=== PATIENT | male | born 1945 | race Caucasian/White ===

== ENCOUNTER 2023-05-08 16:56 | Inpatient (IN) | payer MEDICARE ==
[2023-05-09] MEDS ORDERED: tiZANidine HCl 4 MG TAB PO PRN (10:13)
[2023-05-09] MEDS ORDERED: Senokot S 8.6-50 MG TAB PO PRN (10:16)
[2023-05-09] MEDS ORDERED: Bisacodyl 5 MG TAB PO PRN (10:16)
[2023-05-09] MEDS ORDERED: HumaLOG 300 UNITS/3 ML VIAL SC PRN ×2 (10:19)
[2023-05-09] MEDS ORDERED: Glucagon 1 MG/ML KIT IM PRN (10:19)
[2023-05-09] MEDS ORDERED: Dextrose 50% Abboject 50 ML SYRINGE SLOW IVP PRN (10:19)
[2023-05-09] MEDS: Acetaminophen/Codeine 30-300mg Tablet PO PRN (12:56)
[2023-05-09] MEDS: metFORMIN 500 MG TAB PO SCH (16:35)
[2023-05-09] MEDS: Atorvastatin Calcium 40 MG TAB PO SCH (20:21)
[2023-05-09] MEDS: Nystatin Powder 15 GM BOT TOP SCH (20:21)
[2023-05-09] MEDS: Docusate 100 MG CAP PO SCH (20:22)
[2023-05-09] MEDS: Gabapentin 300 MG CAP PO SCH (20:22)
[2023-05-09] MEDS: Famotidine 20 MG TAB PO SCH (20:22)
[2023-05-10] MEDS: Acetaminophen/Codeine 30-300mg Tablet PO PRN ×2 (05:16→12:19)
[2023-05-10 05:51] LABS: #Basophils 0.1 thou/uL (0.0-0.2); #Eosinphils 0.2 thou/uL (0.0-0.7); #Lymphocytes 1.7 thou/uL (1.20-3.40); #Monocytes 1.2 thou/uL (0.11-0.59); #Neutrophils 9.8 thou/uL (1.40-6.50); %Basophils 0.9 % (0.0-1.0); %Eosinophils 1.8 % (0.0-10.0); %Lymphocytes 12.7 % (21.0-51.0); %Monocytes 9.4 % (0.0-10.0); %Neutrophils 75.2 % (42.0-75.0); Hemoglobin 13.1 g/dL (14.0-18.0); Mean Corpuscular HGB CONC 32.6 g/dL (32.0-36.0); Mean Corpuscular Hemoglobin 29.4 pg (27.0-31.0); Mean Corpuscular Volume 90.4 fl (78.0-98.0); Mean Platelet Volume 8.8 fL (7.4-10.4); Platelet Count 235 10x3/uL (130-400); RBC Distribution Width 12.8 % (11.5-14.5); Red Blood Cell (RBC) Count 4.44 mill/uL (4.70-6.10)
[2023-05-10 06:11] LABS: ALT (SGPT) 16 U/L (8-55); AST (SGOT) 22 U/L (5-34); Albumin 3.7 g/dL (3.4-4.8); Alkaline Phosphatase 56 U/L (40-110); Anion Gap 15 mmol/L (10-20); BUN (Urea Nitrogen) 17 mg/dL (8.4-25.7); Bilirubin, Total 0.7 mg/dL (0.2-1.2); Calc. Creatinine Clearance 97 mL/min (70-130); Calcium 9.6 mg/dL (7.8-10.44); Carbon Dioxide 27 mmol/L (23-31); Chloride 102 mmol/L (98-107); Estimated GFR 89; Globulin 3.6 g/dL (2.4-3.5); Glucose 127 mg/dL (83-110); Potassium 4.5 mmol/L (3.5-5.1); Protein, Total 7.3 g/dL (5.8-8.1); Sodium 139 mmol/L (136-145)
[2023-05-10] MEDS: Docusate 100 MG CAP PO SCH ×4 (08:05→20:32)
[2023-05-10] MEDS: Sertraline 25 MG TAB PO SCH (08:06)
[2023-05-10] MEDS: metFORMIN 500 MG TAB PO SCH ×2 (08:06→16:58)
[2023-05-10] MEDS: Lisinopril 5 MG TAB PO SCH (08:06)
[2023-05-10] MEDS: Oxybutynin ER 5 MG TAB PO SCH (08:07)
[2023-05-10] MEDS: Gabapentin 300 MG CAP PO SCH ×2 (08:07→20:18)
[2023-05-10] MEDS: Famotidine 20 MG TAB PO SCH ×2 (08:08→20:19)
[2023-05-10] MEDS: Nystatin Powder 15 GM BOT TOP SCH ×2 (08:17→20:18)
[2023-05-10] MEDS ORDERED: Non-Formulary Item 1 EACH (Sertraline Hcl [Sertraline Hcl] 50 MG Tablet) PO SCH (09:00)
[2023-05-10] MEDS ORDERED: Non-Formulary Item 1 EACH (Atorvastatin Calcium [Atorvastatin Calcium] 80 MG Tablet) PO SCH (09:00)
[2023-05-10] MEDS ORDERED: Non-Formulary Item 1 EACH (Oxybutynin Chloride [Oxybutynin Chloride Er] 10 MG Tab.Er.24) PO SCH (09:00)
[2023-05-10] MEDS ORDERED: Non-Formulary Item 1 EACH (Lisinopril [Zestril] 2.5 MG Tab) PO SCH (09:00)
[2023-05-10 19:11] LABS: Bilirubin Negative (Negative); Blood, Urine Negative (Negative); Clarity Cloudy (Clear); Glucose, Urine (Dipstick) Negative (Negative); Ketone, Urine Negative (Negative); Leukocyte Small (Negative); Nitrite Negative (Negative); Protein, Urine (Dipstick) Negative (Neg-Trace); Specific Gravity, Urine 1.015 (1.005-1.030)
[2023-05-10 19:12] LABS: CAUTI Indications for Culture Alt mental st,lethar
[2023-05-10 19:13] LABS: RBC/HPF None Seen HPF (0-3); WBC/HPF Greater Than 50 HPF (0-3)
[2023-05-10 19:14] LABS: Bacteria/HPF 4+ HPF (None Seen); Squamous Epithelial None Seen HPF (0-3); Urine Culture Reflex Yes Yes
[2023-05-10] MEDS: Ciprofloxacin 500 MG TAB PO SCH (20:19)
[2023-05-10] MEDS: Atorvastatin Calcium 40 MG TAB PO SCH (20:19)
[2023-05-11] MEDS: Ciprofloxacin 500 MG TAB PO SCH ×2 (05:27→21:00)
[2023-05-11] MEDS: Oxybutynin ER 5 MG TAB PO SCH (09:00)
[2023-05-11] MEDS: Gabapentin 300 MG CAP PO SCH ×2 (09:00→21:00)
[2023-05-11] MEDS: Lisinopril 5 MG TAB PO SCH (09:02)
[2023-05-11] MEDS: Benzocaine/Menthol 1 LOZ LOZ PO PRN ×2 (09:02→13:49)
[2023-05-11] MEDS: Sertraline 25 MG TAB PO SCH (09:02)
[2023-05-11] MEDS: Docusate 100 MG CAP PO SCH ×3 (09:03→21:07)
[2023-05-11] MEDS: Famotidine 20 MG TAB PO SCH ×2 (09:03→21:00)
[2023-05-11] MEDS: metFORMIN 500 MG TAB PO SCH ×2 (09:03→17:06)
[2023-05-11] MEDS: Nystatin Powder 15 GM BOT TOP SCH ×2 (09:03→21:01)
[2023-05-11] MEDS: Acetaminophen/Codeine 30-300mg Tablet PO PRN (13:48)
[2023-05-11] MEDS: Atorvastatin Calcium 40 MG TAB PO SCH (21:00)
[2023-05-12] MEDS: Acetaminophen/Codeine 30-300mg Tablet PO PRN ×3 (06:02→20:08)
[2023-05-12] MEDS: Ciprofloxacin 500 MG TAB PO SCH ×2 (06:03→20:11)
[2023-05-12 06:35] LABS: #Basophils 0.1 thou/uL (0.0-0.2); #Eosinphils 0.3 thou/uL (0.0-0.7); #Lymphocytes 2.3 thou/uL (1.20-3.40); #Monocytes 1.1 thou/uL (0.11-0.59); #Neutrophils 8.3 thou/uL (1.40-6.50); %Basophils 1.1 % (0.0-1.0); %Eosinophils 2.2 % (0.0-10.0); %Lymphocytes 18.9 % (21.0-51.0); %Monocytes 8.8 % (0.0-10.0); Mean Corpuscular HGB CONC 32.4 g/dL (32.0-36.0); Mean Corpuscular Hemoglobin 29.6 pg (27.0-31.0); Mean Corpuscular Volume 91.3 fl (78.0-98.0); Mean Platelet Volume 8.9 fL (7.4-10.4); Platelet Count 230 10x3/uL (130-400); RBC Distribution Width 12.7 % (11.5-14.5); Red Blood Cell (RBC) Count 4.39 mill/uL (4.70-6.10); White Blood Cell (WBC) Count 12.1 10x3/uL (4.8-10.8)
[2023-05-12 06:43] LABS: Anion Gap 14 mmol/L (10-20); BUN (Urea Nitrogen) 20 mg/dL (8.4-25.7); Calc. Creatinine Clearance 102 mL/min (70-130); Calcium 9.5 mg/dL (7.8-10.44); Carbon Dioxide 25 mmol/L (23-31); Chloride 101 mmol/L (98-107); Estimated GFR 90; Glucose 109 mg/dL (83-110); Potassium 3.8 mmol/L (3.5-5.1); Sodium 136 mmol/L (136-145)
[2023-05-12] MEDS: Famotidine 20 MG TAB PO SCH ×2 (08:18→20:11)
[2023-05-12] MEDS: Sertraline 25 MG TAB PO SCH (08:18)
[2023-05-12] MEDS: metFORMIN 500 MG TAB PO SCH ×2 (08:18→17:22)
[2023-05-12] MEDS: Oxybutynin ER 5 MG TAB PO SCH (08:19)
[2023-05-12] MEDS: Docusate 100 MG CAP PO SCH ×2 (08:20→20:11)
[2023-05-12] MEDS: Gabapentin 300 MG CAP PO SCH ×2 (08:22→20:10)
[2023-05-12] MEDS: Lisinopril 5 MG TAB PO SCH (08:22)
[2023-05-12] MEDS: Nystatin Powder 15 GM BOT TOP SCH ×2 (08:55→20:08)
[2023-05-12] MEDS: Benzocaine/Menthol 1 LOZ LOZ PO PRN (10:47)
[2023-05-12 16:37] VITALS: BMI 27.3
[2023-05-12] MEDS: Atorvastatin Calcium 40 MG TAB PO SCH (20:09)
[2023-05-13] MEDS: Ciprofloxacin 500 MG TAB PO SCH ×2 (05:43→20:32)
[2023-05-13] MEDS: Oxybutynin ER 5 MG TAB PO SCH (09:32)
[2023-05-13] MEDS: Sertraline 25 MG TAB PO SCH (09:32)
[2023-05-13] MEDS: Lisinopril 5 MG TAB PO SCH (09:33)
[2023-05-13] MEDS: metFORMIN 500 MG TAB PO SCH ×2 (09:33→16:43)
[2023-05-13] MEDS: Gabapentin 300 MG CAP PO SCH ×2 (09:35→20:32)
[2023-05-13] MEDS: Famotidine 20 MG TAB PO SCH ×2 (09:36→20:32)
[2023-05-13] MEDS: Docusate 100 MG CAP PO SCH ×2 (09:37→20:42)
[2023-05-13] MEDS: Nystatin Powder 15 GM BOT TOP SCH ×2 (09:37→20:29)
[2023-05-13] MEDS: Acetaminophen/Codeine 30-300mg Tablet PO PRN (15:31)
[2023-05-13] MEDS: Atorvastatin Calcium 40 MG TAB PO SCH (20:31)
[2023-05-14] MEDS: Ciprofloxacin 500 MG TAB PO SCH ×2 (05:50→20:13)
[2023-05-14] MEDS: Nystatin Powder 15 GM BOT TOP SCH ×2 (08:15→20:15)
[2023-05-14] MEDS: Sertraline 25 MG TAB PO SCH (08:24)
[2023-05-14] MEDS: Lisinopril 5 MG TAB PO SCH (08:24)
[2023-05-14] MEDS: metFORMIN 500 MG TAB PO SCH ×2 (08:25→16:50)
[2023-05-14] MEDS: Gabapentin 300 MG CAP PO SCH ×2 (08:25→20:14)
[2023-05-14] MEDS: Famotidine 20 MG TAB PO SCH ×2 (08:25→20:14)
[2023-05-14] MEDS: Oxybutynin ER 5 MG TAB PO SCH (08:25)
[2023-05-14] MEDS: Docusate 100 MG CAP PO SCH ×3 (08:26→20:20)
[2023-05-14] MEDS: Acetaminophen 325 MG TAB PO PRN (08:29)
[2023-05-14] MEDS: Acetaminophen/Codeine 30-300mg Tablet PO PRN ×2 (11:23→18:19)
[2023-05-14] MEDS: Benzocaine/Menthol 1 LOZ LOZ PO PRN (12:17)
[2023-05-14] MEDS: Atorvastatin Calcium 40 MG TAB PO SCH (20:13)
[2023-05-15] MEDS: Ciprofloxacin 500 MG TAB PO SCH ×2 (05:25→21:07)
[2023-05-15] MEDS: Oxybutynin ER 5 MG TAB PO SCH (07:45)
[2023-05-15] MEDS: Sertraline 25 MG TAB PO SCH (07:45)
[2023-05-15] MEDS: metFORMIN 500 MG TAB PO SCH ×2 (07:45→17:25)
[2023-05-15] MEDS: Lisinopril 5 MG TAB PO SCH (07:46)
[2023-05-15] MEDS: Famotidine 20 MG TAB PO SCH ×2 (07:46→21:07)
[2023-05-15] MEDS: Gabapentin 300 MG CAP PO SCH ×2 (07:47→21:08)
[2023-05-15] MEDS: Docusate 100 MG CAP PO SCH ×2 (07:49→21:09)
[2023-05-15] MEDS: Nystatin Powder 15 GM BOT TOP SCH ×2 (07:49→21:09)
[2023-05-15] MEDS: Acetaminophen/Codeine 30-300mg Tablet PO PRN ×2 (08:34→21:12)
[2023-05-15] MEDS: Atorvastatin Calcium 40 MG TAB PO SCH (21:07)
[2023-05-16 06:07] LABS: #Basophils 0.2 thou/uL (0.0-0.2); #Eosinphils 0.2 thou/uL (0.0-0.7); #Lymphocytes 2.6 thou/uL (1.20-3.40); #Neutrophils 7.1 thou/uL (1.40-6.50); %Basophils 1.4 % (0.0-1.0); %Eosinophils 1.5 % (0.0-10.0); %Lymphocytes 23.5 % (21.0-51.0); %Monocytes 9.3 % (0.0-10.0); %Neutrophils 64.3 % (42.0-75.0); Hemoglobin 13.1 g/dL (14.0-18.0); Mean Corpuscular HGB CONC 32.4 g/dL (32.0-36.0); Mean Corpuscular Hemoglobin 29.2 pg (27.0-31.0); Mean Corpuscular Volume 90.1 fl (78.0-98.0); Mean Platelet Volume 8.3 fL (7.4-10.4); Platelet Count 261 10x3/uL (130-400); RBC Distribution Width 12.8 % (11.5-14.5)
[2023-05-16 06:17] LABS: Anion Gap 15 mmol/L (10-20); BUN (Urea Nitrogen) 29 mg/dL (8.4-25.7); Calc. Creatinine Clearance 86 mL/min (70-130); Calcium 9.5 mg/dL (7.8-10.44); Carbon Dioxide 25 mmol/L (23-31); Chloride 100 mmol/L (98-107); Estimated GFR 83; Glucose 100 mg/dL (83-110); Potassium 4.1 mmol/L (3.5-5.1); Sodium 136 mmol/L (136-145)
[2023-05-16] MEDS: Sertraline 25 MG TAB PO SCH (09:05)
[2023-05-16] MEDS: metFORMIN 500 MG TAB PO SCH ×2 (09:05→16:54)
[2023-05-16] MEDS: Oxybutynin ER 5 MG TAB PO SCH (09:06)
[2023-05-16] MEDS: Famotidine 20 MG TAB PO SCH ×2 (09:06→21:09)
[2023-05-16] MEDS: Gabapentin 300 MG CAP PO SCH ×2 (09:06→21:09)
[2023-05-16] MEDS: Lisinopril 5 MG TAB PO SCH (09:07)
[2023-05-16] MEDS: Nystatin Powder 15 GM BOT TOP SCH ×2 (09:07→21:10)
[2023-05-16] MEDS: Docusate 100 MG CAP PO SCH ×2 (09:07→21:10)
[2023-05-16] MEDS: Acetaminophen/Codeine 30-300mg Tablet PO PRN (11:58)
[2023-05-16] MEDS: Atorvastatin Calcium 40 MG TAB PO SCH (21:08)
[2023-05-17] MEDS: Oxybutynin ER 5 MG TAB PO SCH (08:24)
[2023-05-17] MEDS: Gabapentin 300 MG CAP PO SCH ×2 (08:25→21:06)
[2023-05-17] MEDS: Sertraline 25 MG TAB PO SCH (08:25)
[2023-05-17] MEDS: Famotidine 20 MG TAB PO SCH ×2 (08:25→21:05)
[2023-05-17] MEDS: metFORMIN 500 MG TAB PO SCH ×2 (08:25→17:07)
[2023-05-17] MEDS: Lisinopril 5 MG TAB PO SCH (08:26)
[2023-05-17] MEDS: Acetaminophen/Codeine 30-300mg Tablet PO PRN (08:26)
[2023-05-17] MEDS: Docusate 100 MG CAP PO SCH ×2 (08:27→21:07)
[2023-05-17] MEDS: Nystatin Powder 15 GM BOT TOP SCH ×2 (08:28→21:08)
[2023-05-17] MEDS: Atorvastatin Calcium 40 MG TAB PO SCH (21:07)
[2023-05-18] MEDS: Acetaminophen/Codeine 30-300mg Tablet PO PRN (08:08)
[2023-05-18] MEDS: metFORMIN 500 MG TAB PO SCH ×2 (08:11→17:04)
[2023-05-18] MEDS: Docusate 100 MG CAP PO SCH ×2 (08:13→20:57)
[2023-05-18] MEDS: Oxybutynin ER 5 MG TAB PO SCH (08:14)
[2023-05-18] MEDS: Famotidine 20 MG TAB PO SCH ×2 (08:15→20:56)
[2023-05-18] MEDS: Lisinopril 5 MG TAB PO SCH (08:16)
[2023-05-18] MEDS: Sertraline 25 MG TAB PO SCH (08:18)
[2023-05-18] MEDS: Gabapentin 300 MG CAP PO SCH ×2 (08:19→20:56)
[2023-05-18] MEDS: Nystatin Powder 15 GM BOT TOP SCH ×2 (08:59→20:55)
[2023-05-18] MEDS: Ondansetron ODT 4 MG TAB SL PRN (09:31)
[2023-05-18] MEDS: Atorvastatin Calcium 40 MG TAB PO SCH (20:56)
[2023-05-19] MEDS: Sertraline 25 MG TAB PO SCH (08:35)
[2023-05-19] MEDS: metFORMIN 500 MG TAB PO SCH ×2 (08:35→17:16)
[2023-05-19] MEDS: Oxybutynin ER 5 MG TAB PO SCH (08:35)
[2023-05-19] MEDS: Nystatin Powder 15 GM BOT TOP SCH ×2 (08:35→21:31)
[2023-05-19] MEDS: Docusate 100 MG CAP PO SCH ×2 (08:35→21:33)
[2023-05-19] MEDS: Gabapentin 300 MG CAP PO SCH ×2 (08:36→21:32)
[2023-05-19] MEDS: Famotidine 20 MG TAB PO SCH ×2 (08:37→21:32)
[2023-05-19] MEDS: Lisinopril 5 MG TAB PO SCH (08:38)
[2023-05-19] MEDS: Acetaminophen/Codeine 30-300mg Tablet PO PRN ×2 (08:47→21:48)
[2023-05-19] MEDS: Atorvastatin Calcium 40 MG TAB PO SCH (21:32)
[2023-05-20] MEDS: Sertraline 25 MG TAB PO SCH (08:33)
[2023-05-20] MEDS: Acetaminophen 325 MG TAB PO PRN (08:33)
[2023-05-20] MEDS: Oxybutynin ER 5 MG TAB PO SCH (08:35)
[2023-05-20] MEDS: Famotidine 20 MG TAB PO SCH ×2 (08:35→20:32)
[2023-05-20] MEDS: Lisinopril 5 MG TAB PO SCH (08:35)
[2023-05-20] MEDS: metFORMIN 500 MG TAB PO SCH ×2 (08:35→17:27)
[2023-05-20] MEDS: Nystatin Powder 15 GM BOT TOP SCH ×2 (08:36→21:54)
[2023-05-20] MEDS: Gabapentin 300 MG CAP PO SCH ×2 (08:36→20:31)
[2023-05-20] MEDS: Docusate 100 MG CAP PO SCH ×2 (08:36→20:32)
[2023-05-20] MEDS: Ondansetron ODT 4 MG TAB SL PRN (18:36)
[2023-05-20] MEDS: Atorvastatin Calcium 40 MG TAB PO SCH (20:31)
[2023-05-20] MEDS: Acetaminophen/Codeine 30-300mg Tablet PO PRN (20:35)
[2023-05-21] MEDS: Gabapentin 300 MG CAP PO SCH ×2 (08:17→21:26)
[2023-05-21] MEDS: Oxybutynin ER 5 MG TAB PO SCH (08:18)
[2023-05-21] MEDS: metFORMIN 500 MG TAB PO SCH ×2 (08:19→16:38)
[2023-05-21] MEDS: Lisinopril 5 MG TAB PO SCH (08:19)
[2023-05-21] MEDS: Famotidine 20 MG TAB PO SCH ×2 (08:19→21:26)
[2023-05-21] MEDS: Nystatin Powder 15 GM BOT TOP SCH ×2 (08:20→21:26)
[2023-05-21] MEDS: Sertraline 25 MG TAB PO SCH (08:20)
[2023-05-21] MEDS: Docusate 100 MG CAP PO SCH ×3 (08:21→22:36)
[2023-05-21] MEDS: Ondansetron ODT 4 MG TAB SL PRN (11:22)
[2023-05-21] MEDS: Acetaminophen/Codeine 30-300mg Tablet PO PRN (21:25)
[2023-05-21] MEDS: Atorvastatin Calcium 40 MG TAB PO SCH (21:25)
[2023-05-22] MEDS: Gabapentin 300 MG CAP PO SCH ×2 (08:35→20:39)
[2023-05-22] MEDS: metFORMIN 500 MG TAB PO SCH ×2 (08:36→16:51)
[2023-05-22] MEDS: Nystatin Powder 15 GM BOT TOP SCH ×2 (08:36→20:44)
[2023-05-22] MEDS: Oxybutynin ER 5 MG TAB PO SCH (08:36)
[2023-05-22] MEDS: Famotidine 20 MG TAB PO SCH ×2 (08:36→20:39)
[2023-05-22] MEDS: Lisinopril 5 MG TAB PO SCH (08:36)
[2023-05-22] MEDS: Sertraline 25 MG TAB PO SCH (08:36)
[2023-05-22] MEDS: Docusate 100 MG CAP PO SCH ×2 (08:39→20:43)
[2023-05-22] MEDS: Ondansetron ODT 4 MG TAB SL PRN (10:39)
[2023-05-22] MEDS: Atorvastatin Calcium 40 MG TAB PO SCH (20:40)
[2023-05-22] MEDS: Acetaminophen/Codeine 30-300mg Tablet PO PRN (20:40)
[2023-05-23 06:08] LABS: #Basophils 0.1 thou/uL (0.0-0.2); #Eosinphils 0.2 thou/uL (0.0-0.7); #Lymphocytes 2.7 thou/uL (1.20-3.40); #Monocytes 0.9 thou/uL (0.11-0.59); #Neutrophils 5.3 thou/uL (1.40-6.50); %Basophils 1.6 % (0.0-1.0); %Eosinophils 2.7 % (0.0-10.0); %Lymphocytes 28.8 % (21.0-51.0); %Monocytes 9.2 % (0.0-10.0); %Neutrophils 57.7 % (42.0-75.0); Hemoglobin 13.3 g/dL (14.0-18.0); Mean Corpuscular HGB CONC 32.7 g/dL (32.0-36.0); Mean Corpuscular Hemoglobin 29.2 pg (27.0-31.0); Mean Corpuscular Volume 89.4 fl (78.0-98.0); Mean Platelet Volume 9.5 fL (7.4-10.4); Platelet Count 180 10x3/uL (130-400); RBC Distribution Width 12.4 % (11.5-14.5); Red Blood Cell (RBC) Count 4.54 mill/uL (4.70-6.10); White Blood Cell (WBC) Count 9.3 10x3/uL (4.8-10.8)
[2023-05-23 06:25] LABS: Anion Gap 15 mmol/L (10-20); BUN (Urea Nitrogen) 39 mg/dL (8.4-25.7); Calc. Creatinine Clearance 89 mL/min (70-130); Calcium 9.5 mg/dL (7.8-10.44); Carbon Dioxide 23 mmol/L (23-31); Chloride 101 mmol/L (98-107); Estimated GFR 86; Glucose 92 mg/dL (83-110); Potassium 4.2 mmol/L (3.5-5.1); Sodium 135 mmol/L (136-145)
[2023-05-23] MEDS: metFORMIN 500 MG TAB PO SCH ×2 (07:59→16:55)
[2023-05-23] MEDS: Gabapentin 300 MG CAP PO SCH ×2 (08:00→21:24)
[2023-05-23] MEDS: Lisinopril 5 MG TAB PO SCH (08:00)
[2023-05-23] MEDS: Sertraline 25 MG TAB PO SCH (08:01)
[2023-05-23] MEDS: Famotidine 20 MG TAB PO SCH ×2 (08:01→21:24)
[2023-05-23] MEDS: Oxybutynin ER 5 MG TAB PO SCH (08:01)
[2023-05-23] MEDS: Nystatin Powder 15 GM BOT TOP SCH ×2 (08:02→21:25)
[2023-05-23] MEDS: Docusate 100 MG CAP PO SCH ×2 (08:03→21:25)
[2023-05-23] MEDS: Ondansetron ODT 4 MG TAB SL PRN (11:18)
[2023-05-23] MEDS: Acetaminophen/Codeine 30-300mg Tablet PO PRN (21:23)
[2023-05-23] MEDS: Atorvastatin Calcium 40 MG TAB PO SCH (21:25)
[2023-05-24] MEDS: metFORMIN 500 MG TAB PO SCH ×2 (08:22→17:08)
[2023-05-24] MEDS: Famotidine 20 MG TAB PO SCH ×2 (08:22→20:08)
[2023-05-24] MEDS: Gabapentin 300 MG CAP PO SCH ×2 (08:22→20:07)
[2023-05-24] MEDS: Lisinopril 5 MG TAB PO SCH (08:23)
[2023-05-24] MEDS: Oxybutynin ER 5 MG TAB PO SCH (08:23)
[2023-05-24] MEDS: Sertraline 25 MG TAB PO SCH (08:23)
[2023-05-24] MEDS: Docusate 100 MG CAP PO SCH ×2 (08:24→20:09)
[2023-05-24] MEDS: Nystatin Powder 15 GM BOT TOP SCH ×2 (08:24→20:06)
[2023-05-24] MEDS: Acetaminophen 325 MG TAB PO PRN ×2 (10:25→17:07)
[2023-05-24] MEDS: Ondansetron ODT 4 MG TAB SL PRN (17:07)
[2023-05-24 19:09] VITALS: TEMP 97.5
[2023-05-24] MEDS: Atorvastatin Calcium 40 MG TAB PO SCH (20:07)
[2023-05-24] MEDS: Acetaminophen/Codeine 30-300mg Tablet PO PRN (20:08)
[2023-05-25 08:03] VITALS: BP 123/67
[2023-05-25] MEDS ORDERED: Megestrol Acetate 800 MG/20 ML UDCUP PO SCH (09:00)
[2023-05-25] MEDS: Oxybutynin ER 5 MG TAB PO SCH (09:06)
[2023-05-25] MEDS: Lisinopril 5 MG TAB PO SCH (09:06)
[2023-05-25] MEDS: Famotidine 20 MG TAB PO SCH (09:06)
[2023-05-25] MEDS: Sertraline 25 MG TAB PO SCH (09:06)
[2023-05-25] MEDS: metFORMIN 500 MG TAB PO SCH (09:06)
[2023-05-25] MEDS: Gabapentin 300 MG CAP PO SCH (09:07)
[2023-05-25] MEDS: Ondansetron ODT 4 MG TAB SL PRN (09:09)
[2023-05-25] MEDS: Docusate 100 MG CAP PO SCH (09:11)
[2023-05-25] MEDS: Nystatin Powder 15 GM BOT TOP SCH (09:11)
== END 2023-05-25 12:30 | disposition home health service (06) | DRG 948 ==
LOC: NAV ACUTE 05-09 11:14
PROVIDERS: ADMIT Family Medicine; ATTEND Family Medicine
DX: R53.81 Other malaise (principal); N30.00 Acute cystitis without hematuria; M48.02 Spinal stenosis, cervical region; M47.812 Spondylosis without myelopathy or radiculopathy, cervical region; I25.10 Atherosclerotic heart disease of native coronary artery without angina pectoris; R53.1 Weakness; E78.5 Hyperlipidemia, unspecified; I10 Essential (primary) hypertension; E11.9 Type 2 diabetes mellitus without complications; K21.9 Gastro-esophageal reflux disease without esophagitis; F32.A Depression, unspecified; R13.10 Dysphagia, unspecified; M48.01 Spinal stenosis, occipito-atlanto-axial region; J98.6 Disorders of diaphragm; M19.90 Unspecified osteoarthritis, unspecified site; Z96.641 Presence of right artificial hip joint; Z88.6 Allergy status to analgesic agent; Z98.890 Other specified postprocedural states; Z95.1 Presence of aortocoronary bypass graft; Z79.899 Other long term (current) drug therapy
CPT/HCPCS: 36415; 36416; 80048; 80053; 81001; 85025; 87086; Q0162